=== PATIENT | male | born 1975 | race Caucasian/White ===

== ENCOUNTER 2018-12-03 14:35 | Emergency (ER) | payer MEDICAID ==
[2018-12-03] MEDS ORDERED: Ketorolac 60 MG/2 ML SDV IM ONE (15:21)
[2018-12-03] MEDS ORDERED: Lidocaine 2% Viscous Solution 15 ML Cup PO ONE (15:28)
[2018-12-03] MEDS ORDERED: Benzocaine 20% Topical Spray UD MUCMEM ONE (15:28)
--- NOTE | 2018-12-03 15:28 | EDM.PDOC ---
ED HPI GENERAL MEDICAL PROBLEM - General Chief Complaint: General Stated Complaint: TOOTHACHE Time Seen by Provider: 12/03/18 15:00 Source of Information: Reports: Patient History Limitations: Reports: No Limitations - History of Present Illness INITIAL COMMENTS - FREE TEXT/NARRATIVE: HISTORY AND PHYSICAL: History of present illness: Presents reporting dental pain. Patient states that he did contact a dentist who told him he needed to be on antibiotics before he could have his many problematic teeth extracted. No fever or constitutional symptoms. Review of systems: As per history of present illness and below otherwise all systems reviewed and negative. Past medical history: As per history of present illness and as reviewed below otherwise noncontributory. Surgical history: As per history of present illness and as reviewed below otherwise noncontributory. Social history: No reported history of drug or alcohol abuse. Family history: As per history of present illness and as reviewed below otherwise noncontributory. Physical exam: HEENT: Atraumatic, normocephalic, pupils reactive, negative for conjunctival pallor or scleral icterus, mucous membranes moist, throat clear, neck supple, nontender, trachea midline. Lungs: Clear to auscultation, breath sounds equal bilaterally, chest nontender. Heart: S1S2, regular, negative for clicks, rubs, or JVD. Abdomen: Soft, nondistended, nontender. Negative for masses or hepatosplenomegaly. Negative for costovertebral tenderness. Pelvis: Stable nontender. Genitourinary: Deferred. Rectal: Deferred. Extremities: Atraumatic, negative for cords or calf pain. Neurovascular unremarkable. Neuro: Awake, alert, oriented. Cranial nerves II through XII unremarkable. Cerebellum unremarkable. Motor and sensory unremarkable throughout. Exam nonfocal. Diagnostics: [] Therapeutics: [] Impression: [] Plan: [] Definitive disposition and diagnosis as appropriate pending reevaluation and review of above. Left Oral/Mouth Pain Score (Numeric/FACES): 10 - Related Data Allergies Allergy/AdvReac Type Severity Reaction Status Date / Time No Known Allergies Allergy Verified 12/03/18 14:55 Home Meds: Home Meds Buprenorphine HCl/Naloxone HCl [Suboxone 4 mg-1 mg Sl Film] 4 mg PO DAILY [History] Clindamycin HCl 1 cap PO TID #30 capsule 12/03/18 [Rx] Past Medical History HEENT History: Reports: None Cardiovascular History: Reports: None Respiratory History: Reports: None Gastrointestinal History: Reports: None Genitourinary History: Reports: None Neurological History: Reports: None Psychiatric History: Reports: None Endocrine/Metabolic History: Reports: None Hematologic History: Reports: None Immunologic History: Reports: None Oncologic (Cancer) History: Reports: None Dermatologic History: Reports: None - Infectious Disease History Infectious Disease History: Reports: None - Past Surgical History Head Surgeries/Procedures: Reports: None Other Musculoskeletal Surgeries/Procedures:: fatty lympomias from back about 2 years ago Social & Family History - Tobacco Use Smoking Status *Q: Current Every Day Smoker Years of Tobacco use: 8 Packs/Tins Daily: 1 - Caffeine Use Caffeine Use: Reports: None - Alcohol Use Days Per Week of Alcohol Use: 2 Number of Drinks Per Day: 3 Total Drinks Per Week: 6 - Recreational Drug Use Recreational Drug Use: No ED ROS GENERAL - Review of Systems Review Of Systems: ROS reveals no pertinent complaints other than HPI. ED EXAM, GENERAL - Physical Exam Exam: See Below Exam Limited By: No Limitations General Appearance: Alert, Mild Distress (Due to dental pain) Ears: Normal External Exam, Normal TMs Nose: Normal Inspection Throat/Mouth: Other (Numerous missing, cracked, rotted to the gum line, large caries) Head: Atraumatic, Normocephalic Neck: Normal Inspection Respiratory/Chest: No Respiratory Distress, Lungs Clear, Normal Breath Sounds Cardiovascular: Regular Rate, Rhythm, No Murmur Neurological: Alert, Oriented Psychiatric: Normal Affect, Normal Mood Skin Exam: Warm, Dry, Intact, Normal Color, No Rash Lymphatic: No Adenopathy Course - Orders/Labs/Meds Orders: Active Orders 24 hr Category Date Time Status Ketorolac [Toradol] Med 12/03/18 15:21 Once 60 mg IM ONETIME ONE Departure - Departure Time of Disposition: 15:25 Disposition: Home, Self-Care 01 Condition: Good Clinical Impression: Dental caries - Discharge Information *PRESCRIPTION DRUG MONITORING PROGRAM REVIEWED*: Not Applicable *COPY OF PRESCRIPTION DRUG MONITORING REPORT IN PATIENT YAHIR: Not Applicable Referrals: PCP,None [Primary Care Provider] - [facility] [Outside] [facility] [Outside] Additional Instructions: The following information is given to patients seen in the emergency department who are being discharged to home. This information is to outline your options for follow-up care. We provide all patients seen in our emergency department with a follow-up referral. The need for follow-up, as well as the timing and circumstances, are variable depending upon the specifics of your emergency department visit. If you don't have a primary care physician on staff, we will provide you with a referral. We always advise you to contact your personal physician following an emergency department visit to inform them of the circumstance of the visit and for follow-up with them and/or the need for any referrals to a consulting specialist. The emergency department will also refer you to a specialist when appropriate. This referral assures that you have the opportunity for follow-up care with a specialist. All of these measure are taken in an effort to provide you with optimal care, which includes your follow-up. Under all circumstances we always encourage you to contact your private physician who remains a resource for coordinating your care. When calling for follow-up care, please make the office aware that this follow-up is from your recent emergency room visit. If for any reason you are refused follow-up, please contact the [facility] Emergency Department at and asked to speak to the emergency department charge nurse. 1. Take your antibiotics 3 times a day 2. Follow-up with dentist for definitive management 3. Aleve 2 in the morning and 2 at night or ibuprofen 2-3 tabs 3 times daily as needed for pain 4. Dental balls: Place 1 over affected tooth and bite down 10 minutes every 2 hours - My Orders Last 24 Hours: My Active Orders 12/03/18 15:21 Ketorolac [Toradol] 60 mg IM ONETIME ONE - Assessment/Plan Last 24 Hours: My Active Orders 12/03/18 15:21 Ketorolac [Toradol] 60 mg IM ONETIME ONE
== END 2018-12-03 15:58 | disposition home or self-care (01) ==
LOC: MW.ED 14:35
DX: K02.9 Dental caries, unspecified (principal); F17.210 Nicotine dependence, cigarettes, uncomplicated; Z79.891 Long term (current) use of opiate analgesic; Z79.899 Other long term (current) drug therapy
CPT/HCPCS: 96372; 99282; A9270; J1885; 99283

== ENCOUNTER 2019-01-23 07:03 | Emergency (ER) | payer MEDICAID ==
[2019-01-23] MEDS ORDERED: Metoclopramide 10 MG/2 ML SDV IV ONE (07:17)
[2019-01-23] MEDS ORDERED: Ketorolac 30 MG/ML SDV IVPUSH ONE (07:17)
[2019-01-23] MEDS ORDERED: Ondansetron 4 MG/2 ML SDV IVPUSH ONE (07:17)
[2019-01-23] MEDS ORDERED: Sodium Chloride 0.9% 1,000 ML IV ONE (07:17)
[2019-01-23] MEDS ORDERED: diphenhydrAMINE 50 MG/ML SDV IVPUSH ONE (07:17)
--- NOTE | 2019-01-23 07:20 | EDM.PDOC ---
ED HPI GENERAL MEDICAL PROBLEM - General Chief Complaint: Headache Stated Complaint: MIGRAINE Time Seen by Provider: 01/23/19 07:17 - History of Present Illness INITIAL COMMENTS - FREE TEXT/NARRATIVE: HISTORY AND PHYSICAL: History of present illness: Patient's 43-year-old white male presents with a concern of migraine headache he states he has history of migraine headaches he does not get them frequently they are associated with photophobia and nausea he has had CT of his brain prior was reportedly negative. Denies any medications or allergies Review of systems: As per history of present illness and below otherwise all systems reviewed and negative. Past medical history: As per history of present illness and as reviewed below otherwise noncontributory. Surgical history: As per history of present illness and as reviewed below otherwise noncontributory. Social history: No reported history of drug or alcohol abuse. Family history: As per history of present illness and as reviewed below otherwise noncontributory. Physical exam: HEENT: Atraumatic, normocephalic, pupils reactive, negative for conjunctival pallor or scleral icterus, mucous membranes moist, throat clear, neck supple, nontender, trachea midline. Lungs: Clear to auscultation, breath sounds equal bilaterally, chest nontender. Heart: S1S2, regular, negative for clicks, rubs, or JVD. Abdomen: Soft, nondistended, nontender. Negative for masses or hepatosplenomegaly. Negative for costovertebral tenderness. Pelvis: Stable nontender. Genitourinary: Deferred. Rectal: Deferred. Extremities: Atraumatic, negative for cords or calf pain. Neurovascular unremarkable. Neuro: Awake, alert, oriented. Cranial nerves II through XII unremarkable. Cerebellum unremarkable. Motor and sensory unremarkable throughout. Exam nonfocal. Diagnostics: Urine drug screen Therapeutics: Saline 1 L bolus and Toradol 30 mg IV Reglan 10 mg IV Zofran 4 mg IV Benadryl 50 mg IV Impression: #1 migraine headache Definitive disposition and diagnosis as appropriate pending reevaluation and review of above. headache Pain Score (Numeric/FACES): 10 - Related Data Allergies Allergy/AdvReac Type Severity Reaction Status Date / Time No Known Allergies Allergy Verified 01/23/19 07:04 Home Meds: Home Meds . [No Known Home Meds] 01/23/19 [History] Past Medical History HEENT History: Reports: None Cardiovascular History: Reports: None Respiratory History: Reports: None Gastrointestinal History: Reports: None Genitourinary History: Reports: None Musculoskeletal History: Reports: None Neurological History: Reports: None Psychiatric History: Reports: None Endocrine/Metabolic History: Reports: None Hematologic History: Reports: None Immunologic History: Reports: None Oncologic (Cancer) History: Reports: None Dermatologic History: Reports: None - Infectious Disease History Infectious Disease History: Reports: None - Past Surgical History Head Surgeries/Procedures: Reports: None HEENT Surgical History: Reports: None Cardiovascular Surgical History: Reports: None Respiratory Surgical History: Reports: None GI Surgical History: Reports: None Male Surgical History: Reports: None Endocrine Surgical History: Reports: None Neurological Surgical History: Reports: None Musculoskeletal Surgical History: Reports: Other (See Below) Other Musculoskeletal Surgeries/Procedures:: fatty lympomias from back about 2 years ago Oncologic Surgical History: Reports: None Dermatological Surgical History: Reports: None Social & Family History - Family History Family Medical History: Noncontributory - Tobacco Use Smoking Status *Q: Current Every Day Smoker Years of Tobacco use: 10 Packs/Tins Daily: 1 - Caffeine Use Caffeine Use: Reports: None - Recreational Drug Use Recreational Drug Use: No ED ROS GENERAL - Review of Systems Review Of Systems: ROS reveals no pertinent complaints other than HPI. ED EXAM, GENERAL - Physical Exam Exam: See Below (See dictation) Course - Vital Signs Last Recorded V/S: Last Vital Signs Temp 35.9 C 01/23/19 07:05 Pulse 88 01/23/19 07:05 Resp 18 01/23/19 07:05 BP 127/88 01/23/19 07:05 Pulse Ox 97 01/23/19 07:05 - Orders/Labs/Meds Orders: Active Orders 24 hr Category Date Time Status DRUG SCREEN, URINE [URCHEM] Stat Lab 01/23/19 07:18 Ordered Sodium Chloride 0.9% [Normal Saline] 1,000 ml Med 01/23/19 07:17 Ordered IV STAT Medication Orders Sodium Chloride (Normal Saline) 1,000 mls @ 999 mls/hr IV STAT ONE Stop: 01/23/19 08:17 Meds: Medications Generic Name Dose Route Start Last Admin Trade Name Freq PRN Reason Stop Dose Admin Sodium Chloride 1,000 mls @ 999 mls/hr 09/26/19 07:17 Normal Saline IV 01/23/19 08:17 STAT ONE Discontinued Medications Generic Name Dose Route Start Last Admin Trade Name Gayle PRN Reason Stop Dose Admin Diphenhydramine HCl 50 mg 01/23/19 07:17 Benadryl IVPUSH 01/23/19 07:18 ONETIME ONE Ketorolac Tromethamine 30 mg 01/23/19 07:17 Toradol IVPUSH 01/23/19 07:18 ONETIME ONE Metoclopramide HCl 10 mg 01/23/19 07:17 Reglan IV 01/23/19 07:18 ONETIME ONE Ondansetron HCl 4 mg 01/23/19 07:17 Zofran IVPUSH 01/23/19 07:18 ONETIME ONE Departure - Departure Time of Disposition: 07:20 Disposition: Home, Self-Care 01 Condition: Good Clinical Impression: Migraine - Discharge Information Referrals: PCP,None [Primary Care Provider] - Additional Instructions: The following information is given to patients seen in the emergency department who are being discharged to home. This information is to outline your options for follow-up care. We provide all patients seen in our emergency department with a follow-up referral. The need for follow-up, as well as the timing and circumstances, are variable depending upon the specifics of your emergency department visit. If you don't have a primary care physician on staff, we will provide you with a referral. We always advise you to contact your personal physician following an emergency department visit to inform them of the circumstance of the visit and for follow-up with them and/or the need for any referrals to a consulting specialist. The emergency department will also refer you to a specialist when appropriate. This referral assures that you have the opportunity for followup care with a specialist. All of these measure are taken in an effort to provide you with optimal care, which includes your followup. Under all circumstances we always encourage you to contact your private physician who remains a resource for coordinating your care. When calling for followup care, please make the office aware that this follow-up is from your recent emergency room visit. If for any reason you are refused follow-up, please contact the [facility] emergency department at and asked to speak to the emergency department charge nurse. Follow-up primary medical doctor as needed as discussed return as needed as discussed - My Orders Last 24 Hours: My Active Orders 01/23/19 07:17 Sodium Chloride 0.9% [Normal Saline] 1,000 ml IV STAT 01/23/19 07:18 DRUG SCREEN, URINE [URCHEM] Stat - Assessment/Plan Last 24 Hours: My Active Orders 01/23/19 07:17 Sodium Chloride 0.9% [Normal Saline] 1,000 ml IV STAT 01/23/19 07:18 DRUG SCREEN, URINE [URCHEM] Stat
== END 2019-01-23 08:50 | disposition home or self-care (01) ==
LOC: MW.ED 07:03
DX: G43.909 Migraine, unspecified, not intractable, without status migrainosus (principal); F17.210 Nicotine dependence, cigarettes, uncomplicated
CPT/HCPCS: 80305; 96361; 96374; 96375; 99284; J1200; J1885; J2405; J2765; J7040; 99282